=== PATIENT | male | born 1995 | race Caucasian/White ===

== ENCOUNTER 2016-10-22 01:07 | Emergency (ER) | payer OTHER ==
[2016-10-22] MEDS ORDERED: LIDOCAINE 2% 20 ML ONE (02:12)
[2016-10-22] MEDS ORDERED: TDaP 0.5 ML VIAL IM.VACC ONE (02:17)
[2016-10-22] MEDS ORDERED: ACETAMINOPHEN 325 MG TAB ONE (04:05)
== END 2016-10-22 04:12 | disposition home or self-care (01) ==
LOC: ER 01:07
DX: S01.511A Laceration without foreign body of lip, initial encounter (principal); W22.8XXA Striking against or struck by other objects, initial encounter; Y92.149 Unspecified place in prison as the place of occurrence of the external cause; Z23 Encounter for immunization; Z87.891 Personal history of nicotine dependence
CPT/HCPCS: 90471